=== PATIENT | female | born 1980 | race African-American/Black ===

== ENCOUNTER → 2021-03-15 | Outpatient (CLI) | payer OTHER ==
[~2021-03-15] MED LIST: IBUPROFEN100 MG/52 PO; PROMETH-CODEIN 65 ML PO
--- NOTE | 2021-03-19 17:06 | PATH ---
[facility] [place] [address] PATHOLOGY RPT PROCEDURE Name: JEREMIAH BALDERAS Room #: REG [facility].#: [id number] Admission: 03/15/21 Date of : 84 Discharge: Report #: [id number] Path Case #: [id number] Note [facility] Accession Number: [id number] TESTS RESULT FLAG UNITS REF RANGE LAB Clinician Provided Cytology Information No. of containers..01 Other (Miscellaneous) Source: LEFT THYROID DIAGNOSIS: 02 LEFT THYROID NEGATIVE FOR MALIGNANT EPITHELIAL CELLS. COLLOID IS PRESENT. RED BLOOD CELLS ARE PRESENT. BETHESDA CATEGORY II. SPECIMEN CONSISTS OF GROUPS OF FOLLICULAR CELLS, HEMOSIDERIN-LADEN MACROPHAGES, COLLOID, AND BLOOD. THIS PATTERN IS COMPATIBLE WITH AN ADENOMATOID NODULE. THIS INTERPRETATION INCLUDES EVALUATION OF A CELL BLOCK. NEGATIVE FOR NUCLEAR FEATURES OF PAPILLRY THYROID CARCINOMA. 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 Pathologist ICD10: 02 E04.1 Signed out by: 02 Carmen Serra MD, Pathologist NPI- [id number] Performed by: 01 Justa Haines, User Interface Artist ([facility]) Gross description: 01 20ML, RED, 3FX 3AD /LCS 03/18/2021 0737 Local FLAG LEGEND: L-Low Normal,H-High Normal,LL-Alert Low,HH-Alert High <-Panic Low,>-Panic High,A-Abnormal,AA-Critical Abnormal Performed at: 01 [facility] [address] [place] [address] Bertin Melgar MD, [address] [address] Carmen Serra MD, Specimen Comment: A courtesy copy of this report has been sent to [phone] Specimen Comment: Report sent to [address] [address] PATHOLOGY RPT PROCEDURE Name: BALDERASJEREMIAH R Room #: REG [facility]#: [id number] Admission: 03/15/21 Date of : 84 Discharge: Report #: [id number] Path Case #: [id number] Performed at: 01 [facility] [place] [address], [place], [place] [id number] MD Bertin Melgar MD Phone: [phone]
== END | disposition home or self-care (01) ==
LOC: ULTRA 08:06
PROVIDERS: ATTEND Otolaryngology
DX: E04.1 Nontoxic single thyroid nodule (principal)